=== PATIENT | male | born 1965 | race Caucasian/White ===

== ENCOUNTER 2021-04-09 13:22 | Emergency (ER) | payer OTHER ==
[2021-04-09 13:51] VITALS: BP 109/73; PULSE 113; TEMP 97.7; BMI 26.2
== END 2021-04-09 14:50 | disposition home or self-care (01) ==
LOC: JER 13:22
DX: R05 Cough (principal)
CPT/HCPCS: 71046-TC-FY; 99283-25

== ENCOUNTER 2021-04-18 21:50 | Inpatient (IN) | payer OTHER ==
[2021-04-18] MEDS ORDERED: DEXAMETHASONE SOD PHOSPHATE 10 MG/1 ML VIAL IVPUSH ONE (22:14)
[2021-04-18] MEDS ORDERED: ACETAMINOPHEN 1000 MG/100 ML VIAL (NON FORMULARY) IVPB ONE (22:14)
[2021-04-18 22:20] LABS: BASO % 0.6 % (0-2.0); EOS % 0.1 % (0-4.5); HEMATOCRIT 38.7 % (35.4-49); HEMOGLOBIN 13.6 GM/dL (11.7-16.9); MCH 29.9 pg (25.7-33.7); MCHC 35.1 g/dl (32.0-35.9); MEAN CELL VOLUME 85.1 fl (80-96); MEAN PLT VOLUME 8.8 fl (7.5-11.1); MONO % 4.9 % (3.8-10.2); NEUT % 84.4 % (42.8-82.8); PLATELET COUNT 214 10^3/uL (134-434); RBC 4.55 M/mm3 (4.00-5.60); RDW 13.1 % (11.9-15.9); WHITE BLOOD COUNT 11.9 K/mm3 (4.0-10.0)
[2021-04-18 22:21] LABS: VENOUS BASE EXCESS 2.7 mmol/L (-2-2); VENOUS O2 SATURATION 73.8 % (70-80); VENOUS PCO2 41.8 mmHg (38-52); VENOUS PH 7.433 (7.310-7.410)
[2021-04-18 22:27] LABS: INR 1.14 (0.83-1.09); PROTHROMBIN TIME (PATIENT) 14.1 SEC (9.7-13.0)
[2021-04-18 22:30] LABS: ACTIVATED PTT 32.3 SECONDS (25.2-36.5)
[2021-04-18 22:42] LABS: CALCIUM 8.5 mg/dL (8.5-10.1)
[2021-04-18 22:43] LABS: ALBUMIN 2.7 g/dl (3.4-5.0); BLOOD UREA NITROGEN 9.2 mg/dL (7-18)
[2021-04-18 22:47] LABS: BILIRUBIN,TOTAL 0.6 mg/dL (0.2-1)
[2021-04-18 22:51] LABS: N-TERMINAL BNP 136.8 pg/ml (5-125)
[2021-04-18 22:56] LABS: LACTIC ACID 4.1 mmol/L (0.4-2.0)
[2021-04-18] MEDS ORDERED: LACTATED RINGERS SOLUTION 1000 ML INFUS.BAG IV ONE (23:09)
[2021-04-18] MEDS ORDERED: POTASSIUM CHLORIDE ORAL LIQUID 20 MEQ/15 ML PO ONE (23:30)
[2021-04-18] MEDS ORDERED: GABAPENTIN 300 MG CAPSULE PO ONE (23:42)
[2021-04-18] MEDS ORDERED: clonazePAM 0.5 MG TABLET PO ONE (23:42)
[2021-04-19] MEDS ORDERED: POTASSIUM CHLORIDE ORAL LIQUID 20 MEQ/15 ML ONE (00:41)
[2021-04-19] MEDS ORDERED: clonazePAM 0.5 MG TABLET ONE (00:41)
[2021-04-19] MEDS ORDERED: MIRTAZAPINE 15 MG TABLET (FP) PO ONE (00:47)
[2021-04-19] MEDS ORDERED: ENOXAPARIN NA (PORCINE) 80 MG/0.8 ML DISP.SYRIN SQ ONE ×2 (06:21→06:35)
[2021-04-19] MEDS ORDERED: SODIUM CHLORIDE 1,000 ML IV SCH (11:45)
[2021-04-19] MEDS: GABAPENTIN 300 MG CAPSULE PO SCH ×2 (13:38→22:30)
[2021-04-19] MEDS ORDERED: ALTEPLASE 50MG 25 MG in SODIUM CHLORIDE 225 ML IVPB ONE (16:45)
[2021-04-19] MEDS ORDERED: PT OWN MED DRAWER 7, Y5N ONE ×2 (18:05→22:12)
[2021-04-19] MEDS: guaiFENesin 200 MG/10 ML 10 ML UNIT-DOSE CUPS PO PRN ×2 (18:08→22:31)
[2021-04-19] MEDS: BENZTROPINE MESYLATE 1 MG TABLET PO SCH (18:08)
[2021-04-19] MEDS ORDERED: ENOXAPARIN NA (PORCINE) 60 MG/0.6 ML DISP.SYRIN SQ SCH (22:00)
[2021-04-19] MEDS ORDERED: ENOXAPARIN NA (PORCINE) 80 MG/0.8 ML DISP.SYRIN SQ SCH (22:00)
[2021-04-19] MEDS ORDERED: MIRTAZAPINE 15 MG TABLET (FP) ONE (22:11)
[2021-04-19] MEDS: CHLORHEXIDINE GLUCONATE 4% CLEANSER FOR DECOLONIZATION TP SCH (22:29)
[2021-04-19] MEDS: MUPIROCIN 2% TOPICAL OINTMENT FOR DECOLONIZATION NS SCH (22:29)
[2021-04-19] MEDS: MIRTAZAPINE 30 MG TABLET PO SCH (22:31)
[2021-04-19 22:48] LABS: BASO % 0.7 % (0-2.0); HEMOGLOBIN 13.2 GM/dL (11.7-16.9); LYMPH % 14.5 % (8-40); MCH 29.5 pg (25.7-33.7); MCHC 34.7 g/dl (32.0-35.9); MEAN PLT VOLUME 8.3 fl (7.5-11.1); MONO % 5.8 % (3.8-10.2); PLATELET COUNT 191 10^3/uL (134-434); RBC 4.48 M/mm3 (4.00-5.60); RDW 13.3 % (11.9-15.9); WHITE BLOOD COUNT 10.9 K/mm3 (4.0-10.0)
[2021-04-19] MEDS: OLANZapine 10 MG TABLET PO SCH (22:50)
[2021-04-19 22:56] LABS: INR 1.12 (0.83-1.09); PROTHROMBIN TIME (PATIENT) 13.6 SEC (9.7-13.0)
[2021-04-19 22:59] LABS: ACTIVATED PTT 29.7 SECONDS (25.2-36.5)
[2021-04-19] MEDS ORDERED: MIRTAZAPINE 30 MG TABLET PO ONE (23:42)
[2021-04-20 00:18] LABS: CALCIUM 8.7 mg/dL (8.5-10.1)
[2021-04-20 00:19] LABS: ALBUMIN 2.5 g/dl (3.4-5.0)
[2021-04-20 00:22] LABS: CREATININE 0.8 mg/dL (0.55-1.3)
[2021-04-20 00:24] LABS: BILIRUBIN,TOTAL 0.7 mg/dL (0.2-1); BLOOD UREA NITROGEN 8.1 mg/dL (7-18); TOT PROT 6.5 g/dl (6.4-8.2)
[2021-04-20] MEDS: GABAPENTIN 300 MG CAPSULE PO SCH ×3 (05:44→22:08)
[2021-04-20] MEDS: INSULIN SLIDING SCALE (NOVOLOG) 1 VIAL SQ SCH ×4 (06:00→22:42)
[2021-04-20 07:00] LABS: BASO % 0.4 % (0-2.0); EOS % 0.2 % (0-4.5); HEMATOCRIT 35.3 % (35.4-49); HEMOGLOBIN 12.2 GM/dL (11.7-16.9); LYMPH % 22.2 % (8-40); MCH 29.6 pg (25.7-33.7); MCHC 34.7 g/dl (32.0-35.9); MEAN CELL VOLUME 85.3 fl (80-96); MEAN PLT VOLUME 8.6 fl (7.5-11.1); MONO % 7.1 % (3.8-10.2); NEUT % 70.1 % (42.8-82.8); PLATELET COUNT 160 10^3/uL (134-434); RBC 4.14 M/mm3 (4.00-5.60); RDW 13.3 % (11.9-15.9); WHITE BLOOD COUNT 9.1 K/mm3 (4.0-10.0)
[2021-04-20 07:15] LABS: CALCIUM 8.1 mg/dL (8.5-10.1)
[2021-04-20 07:16] LABS: ALBUMIN 2.2 g/dl (3.4-5.0); BLOOD UREA NITROGEN 8.9 mg/dL (7-18)
[2021-04-20 07:19] LABS: CREATININE 0.7 mg/dL (0.55-1.3)
[2021-04-20 07:20] LABS: BILIRUBIN,TOTAL 0.5 mg/dL (0.2-1); TOT PROT 5.7 g/dl (6.4-8.2)
[2021-04-20] MEDS ORDERED: HEPARIN NA (PORCINE) 5,000 UNITS/ML 1ML VIAL IVPUSH PRN ×4 (09:00→10:30)
[2021-04-20] MEDS: MUPIROCIN 2% TOPICAL OINTMENT FOR DECOLONIZATION NS SCH ×2 (09:29→22:07)
[2021-04-20] MEDS: BENZTROPINE MESYLATE 1 MG TABLET PO SCH (09:29)
[2021-04-20] MEDS: HEPARIN - 25,000 UNIT in SODIUM CHLORIDE 495 ML IV SCH (10:26)
[2021-04-20] MEDS ORDERED: HEPARIN NA (PORCINE) 5,000 UNITS/ML 1ML VIAL IVPUSH ONE (10:30)
[2021-04-20] MEDS ORDERED: INSULIN REGULAR HUMAN 100 UNITS/ML *VIAL IVPUSH ONE ×2 (11:45→16:47)
[2021-04-20] MEDS ORDERED: INSULIN REGULAR HUMAN 100 UNITS/ML *VIAL IVPUSH PRN (16:47)
[2021-04-20] MEDS ORDERED: ALTEPLASE 50MG 25 MG in SODIUM CHLORIDE 225 ML IVPB ONE ×2 (17:00→17:15)
[2021-04-20] MEDS ORDERED: PT OWN MED DRAWER 7, Y5N ONE (22:05)
[2021-04-20] MEDS ORDERED: MIRTAZAPINE 15 MG TABLET (FP) ONE (22:05)
[2021-04-20] MEDS: CHLORHEXIDINE GLUCONATE 4% CLEANSER FOR DECOLONIZATION TP SCH (22:07)
[2021-04-20] MEDS: OLANZapine 10 MG TABLET PO SCH (22:08)
[2021-04-20] MEDS: MIRTAZAPINE 30 MG TABLET PO SCH (22:08)
[2021-04-20] MEDS: guaiFENesin 200 MG/10 ML 10 ML UNIT-DOSE CUPS PO PRN (22:09)
[2021-04-21 06:33] LABS: INR 1.07 (0.83-1.09); PROTHROMBIN TIME (PATIENT) 13.2 SEC (9.7-13.0)
[2021-04-21 06:36] LABS: ACTIVATED PTT 27.2 SECONDS (25.2-36.5)
[2021-04-21] MEDS: INSULIN SLIDING SCALE (NOVOLOG) 1 VIAL SQ SCH ×4 (06:39→21:54)
[2021-04-21] MEDS: GABAPENTIN 300 MG CAPSULE PO SCH ×3 (06:39→21:46)
[2021-04-21 06:46] LABS: ALBUMIN 2.4 g/dl (3.4-5.0); BLOOD UREA NITROGEN 4.7 mg/dL (7-18); CALCIUM 8.3 mg/dL (8.5-10.1); MAGNESIUM 1.8 mg/dL (1.8-2.4)
[2021-04-21 06:47] LABS: BASO % 0.8 % (0-2.0); EOS % 0.3 % (0-4.5); HEMATOCRIT 34.8 % (35.4-49); HEMOGLOBIN 12.5 GM/dL (11.7-16.9); LYMPH % 24.1 % (8-40); MCH 29.9 pg (25.7-33.7); MCHC 35.9 g/dl (32.0-35.9); MEAN CELL VOLUME 83.3 fl (80-96); MEAN PLT VOLUME 8.3 fl (7.5-11.1); NEUT % 67.8 % (42.8-82.8); PLATELET COUNT 145 10^3/uL (134-434); RBC 4.18 M/mm3 (4.00-5.60); RDW 13.1 % (11.9-15.9); WHITE BLOOD COUNT 7.6 K/mm3 (4.0-10.0)
[2021-04-21 06:49] LABS: PHOSPHOROUS 4.1 mg/dL (2.5-4.9)
[2021-04-21 06:50] LABS: CREATININE 0.6 mg/dL (0.55-1.3)
[2021-04-21 06:51] LABS: BILIRUBIN,TOTAL 0.5 mg/dL (0.2-1)
[2021-04-21] MEDS: BENZTROPINE MESYLATE 1 MG TABLET PO SCH (09:00)
[2021-04-21] MEDS: MUPIROCIN 2% TOPICAL OINTMENT FOR DECOLONIZATION NS SCH ×2 (09:00→21:46)
[2021-04-21] MEDS: clonazePAM 0.5 MG TABLET PO PRN ×2 (09:00→21:48)
[2021-04-21 09:01] LABS: PLATELET ESTIMATE DECREASED
[2021-04-21] MEDS: HEPARIN - 25,000 UNIT in SODIUM CHLORIDE 495 ML IV SCH (11:43)
[2021-04-21 16:21] VITALS: BMI 22.4
[2021-04-21] MEDS: guaiFENesin 200 MG/10 ML 10 ML UNIT-DOSE CUPS PO PRN (16:35)
[2021-04-21] MEDS ORDERED: MIRTAZAPINE 15 MG TABLET (FP) ONE (21:21)
[2021-04-21] MEDS ORDERED: PT OWN MED DRAWER 7, Y5N ONE (21:22)
[2021-04-21] MEDS: CHLORHEXIDINE GLUCONATE 4% CLEANSER FOR DECOLONIZATION TP SCH (21:46)
[2021-04-21] MEDS: MIRTAZAPINE 30 MG TABLET PO SCH (21:47)
[2021-04-21] MEDS: OLANZapine 10 MG TABLET PO SCH (21:48)
[2021-04-21] MEDS: INSULIN (LEVEMIR) 100 UNITS/ML UNITS SQ SCH (21:54)
[2021-04-22] MEDS: GABAPENTIN 300 MG CAPSULE PO SCH ×3 (05:12→21:48)
[2021-04-22] MEDS: INSULIN SLIDING SCALE (NOVOLOG) 1 VIAL SQ SCH ×4 (06:15→21:52)
[2021-04-22 06:41] LABS: HEMATOCRIT 37.2 % (35.4-49); HEMOGLOBIN 12.9 GM/dL (11.7-16.9); MCH 29.7 pg (25.7-33.7); MCHC 34.7 g/dl (32.0-35.9); MEAN CELL VOLUME 85.4 fl (80-96); MEAN PLT VOLUME 8.5 fl (7.5-11.1); PLATELET COUNT 173 10^3/uL (134-434); RBC 4.35 M/mm3 (4.00-5.60); RDW 13.4 % (11.9-15.9); WHITE BLOOD COUNT 5.9 K/mm3 (4.0-10.0)
[2021-04-22 06:47] LABS: HEMATOCRIT 36.7 % (35.4-49); HEMOGLOBIN 12.8 GM/dL (11.7-16.9); MCH 29.9 pg (25.7-33.7); MCHC 34.8 g/dl (32.0-35.9); MEAN CELL VOLUME 85.8 fl (80-96); MEAN PLT VOLUME 8.5 fl (7.5-11.1); PLATELET COUNT 172 10^3/uL (134-434); RBC 4.28 M/mm3 (4.00-5.60); RDW 13.3 % (11.9-15.9)
[2021-04-22 07:17] LABS: ALBUMIN 2.5 g/dl (3.4-5.0); CALCIUM 9.3 mg/dL (8.5-10.1)
[2021-04-22 07:19] LABS: CREATININE 0.6 mg/dL (0.55-1.3); PHOSPHOROUS 4.2 mg/dL (2.5-4.9)
[2021-04-22 07:20] LABS: BILIRUBIN,TOTAL 0.3 mg/dL (0.2-1); BLOOD UREA NITROGEN 6.3 mg/dL (7-18)
[2021-04-22 07:24] LABS: TOT PROT 6.2 g/dl (6.4-8.2)
[2021-04-22 09:29] LABS: ANISOCYTOSIS 1+; MACROCYTOSIS 0; PLATELET ESTIMATE NORMAL
[2021-04-22] MEDS ORDERED: PT OWN MED DRAWER 7, Y5N ONE ×3 (11:03→21:26)
[2021-04-22] MEDS: BENZTROPINE MESYLATE 1 MG TABLET PO SCH (11:07)
[2021-04-22] MEDS: MUPIROCIN 2% TOPICAL OINTMENT FOR DECOLONIZATION NS SCH ×2 (11:10→21:47)
[2021-04-22] MEDS: INSULIN (LEVEMIR) 100 UNITS/ML UNITS SQ SCH ×2 (11:14→21:51)
[2021-04-22] MEDS: APIXABAN 5 MG TABLET PO SCH ×2 (12:29→21:47)
[2021-04-22] MEDS ORDERED: MIRTAZAPINE 15 MG TABLET (FP) ONE (21:25)
[2021-04-22] MEDS: CHLORHEXIDINE GLUCONATE 4% CLEANSER FOR DECOLONIZATION TP SCH (21:47)
[2021-04-22] MEDS: MIRTAZAPINE 30 MG TABLET PO SCH (21:49)
[2021-04-22] MEDS: OLANZapine 10 MG TABLET PO SCH (21:51)
[2021-04-23] MEDS: GABAPENTIN 300 MG CAPSULE PO SCH ×3 (05:18→21:07)
[2021-04-23] MEDS: INSULIN SLIDING SCALE (NOVOLOG) 1 VIAL SQ SCH ×4 (06:05→21:20)
[2021-04-23 07:07] LABS: HEMATOCRIT 35.7 % (35.4-49); HEMOGLOBIN 12.6 GM/dL (11.7-16.9); MCH 30.2 pg (25.7-33.7); MCHC 35.3 g/dl (32.0-35.9); MEAN CELL VOLUME 85.6 fl (80-96); MEAN PLT VOLUME 8.6 fl (7.5-11.1); PLATELET COUNT 187 10^3/uL (134-434); RBC 4.17 M/mm3 (4.00-5.60); RDW 13.4 % (11.9-15.9); WHITE BLOOD COUNT 5.5 K/mm3 (4.0-10.0)
[2021-04-23 07:45] LABS: ALBUMIN 2.6 g/dl (3.4-5.0); BLOOD UREA NITROGEN 8.9 mg/dL (7-18); CALCIUM 8.8 mg/dL (8.5-10.1)
[2021-04-23 07:46] LABS: MAGNESIUM 2.2 mg/dL (1.8-2.4)
[2021-04-23 07:48] LABS: CREATININE 0.6 mg/dL (0.55-1.3); PHOSPHOROUS 3.6 mg/dL (2.5-4.9)
[2021-04-23 07:49] LABS: TOT PROT 6.4 g/dl (6.4-8.2)
[2021-04-23 07:51] LABS: BILIRUBIN,TOTAL 0.5 mg/dL (0.2-1)
[2021-04-23] MEDS: APIXABAN 5 MG TABLET PO SCH ×2 (09:33→21:07)
[2021-04-23] MEDS: MUPIROCIN 2% TOPICAL OINTMENT FOR DECOLONIZATION NS SCH (09:33)
[2021-04-23] MEDS ORDERED: PT OWN MED DRAWER 7, Y5N ONE (09:35)
[2021-04-23] MEDS: BENZTROPINE MESYLATE 1 MG TABLET PO SCH (09:44)
[2021-04-23] MEDS: INSULIN (LEVEMIR) 100 UNITS/ML UNITS SQ SCH ×2 (09:45→21:08)
[2021-04-23 10:40] LABS: ANISOCYTOSIS 1+; MACROCYTOSIS 0; PLATELET ESTIMATE NORMAL; TEAR DROP CELLS 1+
[2021-04-23] MEDS ORDERED: guaiFENesin 200 MG/10 ML 10 ML UNIT-DOSE CUPS PO PRN (18:45)
[2021-04-23] MEDS ORDERED: OLANZapine 10 MG TABLET PO SCH (22:00)
[2021-04-23] MEDS ORDERED: MIRTAZAPINE 15 MG TABLET (FP) PO SCH (22:00)
[2021-04-24] MEDS: GABAPENTIN 300 MG CAPSULE PO SCH ×2 (05:17→13:05)
[2021-04-24] MEDS: INSULIN SLIDING SCALE (NOVOLOG) 1 VIAL SQ SCH ×2 (06:10→11:32)
[2021-04-24] MEDS: INSULIN (LEVEMIR) 100 UNITS/ML UNITS SQ SCH (06:11)
[2021-04-24 08:44] LABS: HEMATOCRIT 36.6 % (35.4-49); HEMOGLOBIN 12.7 GM/dL (11.7-16.9); MCHC 34.8 g/dl (32.0-35.9); MEAN CELL VOLUME 86.2 fl (80-96); MEAN PLT VOLUME 8.3 fl (7.5-11.1); PLATELET COUNT 230 10^3/uL (134-434); RBC 4.25 M/mm3 (4.00-5.60); RDW 13.7 % (11.9-15.9); WHITE BLOOD COUNT 6.5 K/mm3 (4.0-10.0)
[2021-04-24] MEDS ORDERED: BENZTROPINE MESYLATE 1 MG TABLET PO SCH (10:00)
[2021-04-24] MEDS: APIXABAN 5 MG TABLET PO SCH (10:20)
[2021-04-24 15:07] VITALS: BP 119/58; PULSE 109; TEMP 98.2
[2021-04-24] MEDS ORDERED: INSULIN (LEVEMIR) 100 UNITS/ML UNITS SQ SCH (22:00)
== END 2021-04-24 16:39 | disposition home or self-care (01) | DRG 950 ==
LOC: JER 21:50 → JERBED 04-19 06:34 → JICU 04-19 11:54 → J8W 04-23 18:33
PROVIDERS: ADMIT Internal Medicine; ATTEND Internal Medicine
PROC: 02CR3ZZ Extirpation of Matter from Left Pulmonary Artery, Percutaneous Approach (ICD-10-PCS; principal; 2021-04-20)
PROC: 02CQ3ZZ Extirpation of Matter from Right Pulmonary Artery, Percutaneous Approach (ICD-10-PCS; 2021-04-20)
PROC: 3E05317 Introduction of Other Thrombolytic into Peripheral Artery, Percutaneous Approach (ICD-10-PCS; 2021-04-20)
DX: I26.09 Other pulmonary embolism with acute cor pulmonale (principal); E11.610 Type 2 diabetes mellitus with diabetic neuropathic arthropathy; I24.8 Other forms of acute ischemic heart disease; B94.8 Sequelae of other specified infectious and parasitic diseases; F20.9 Schizophrenia, unspecified; F41.8 Other specified anxiety disorders; I51.7 Cardiomegaly
CPT/HCPCS: 36415; 37184; 37211; 37212; 71045-TC-FY; 71275-TC; 75743-TC-FY; 75746-TC-FY; 80053; 82728; 82803; 82962; 83036; 83605; 83615; 83735; 83880; 84100; 84484; 85025; 85027; 85379; 85610; 85730; 86140; 87040; 93005; 93010; 93306-TC; 93970-TC; 99285-25; C9803; J0131; J1100; J1644; J2997; U0003; U0005

== ENCOUNTER 2024-05-07 04:19 | Day surgery (SDC) | payer OTHER ==
[2024-04-24 11:09] VITALS: BMI 26.2
[2024-05-07 09:46] VITALS: TEMP 98.5
[2024-05-07 12:22] VITALS: BP 116/69; PULSE 94; RESP 17
== END 2024-05-07 10:30 | disposition home or self-care (01) ==
LOC: JASU-ENDO 04:19
PROVIDERS: ATTEND Internal Medicine Gastroenterology
PROC: 0DBN8ZX Excision of Sigmoid Colon, Via Natural or Artificial Opening Endoscopic, Diagnostic (ICD-10-PCS; 2024-05-07)
PROC: 0DBL8ZX Excision of Transverse Colon, Via Natural or Artificial Opening Endoscopic, Diagnostic (ICD-10-PCS; principal; 2024-05-07 09:30)
DX: Z12.11 Encounter for screening for malignant neoplasm of colon (principal); K63.5 Polyp of colon; K51.40 Inflammatory polyps of colon without complications; K64.8 Other hemorrhoids; K57.30 Diverticulosis of large intestine without perforation or abscess without bleeding; Z80.0 Family history of malignant neoplasm of digestive organs
CPT/HCPCS: 82962; 88305-TC